=== PATIENT | male | born 1975 | race Hispanic/Latino ===

== ENCOUNTER 2021-01-28 21:01 | Emergency (ER) | payer OTHER ==
[2021-01-28] MEDS ORDERED: SODIUM CHLORIDE 0.9% 1000 ML 1,000 ML IV ONE (21:08)
[2021-01-28] MEDS ORDERED: ONDANSETRON 4 MG/2 ML INJ IV ONE (21:08)
[2021-01-28] MEDS ORDERED: fentaNYL 100 MCG/2 ML INJ IV ONE ×2 (21:10→21:23)
--- NOTE | 2021-01-28 21:12 | Emergency Department Report ---
ED Abdominal Pain HPI - General Stated Complaint: RT FLANK PAIN PUI?: No Time Seen by Provider: 01/28/21 21:04 - History of Present Illness Initial Comments: Patient is 45 years old male with no significant past medical history. Patient brought to the emergency room via EMS for evaluation of sudden onset of right flank pain that radiated to his suprapubic area. Patient described the pain as stabbing, on and off. Patient also reported nausea but no vomiting. Patient denied any fever, chills, chest pain or shortness of breath. Patient is very diaphoretic. Patient rated his pain 10 out of 10. MD Complaint: flank pain -: Sudden, minutes(s) Radiation: none Severity: severe Severity scale (0 -10): 10 Quality: stabbing Associated Symptoms: denies other symptoms - Related Data Allergies Allergy/AdvReac Type Severity Reaction Status Date / Time codeine AdvReac Hives Verified 01/28/21 21:25 ED Review of Systems ROS: Stated complaint: RT FLANK PAIN Other details as noted in HPI Comment: All other systems reviewed and negative Constitutional: denies: chills, fever Respiratory: denies: cough, shortness of breath, SOB with exertion Cardiovascular: denies: chest pain, palpitations Gastrointestinal: abdominal pain, nausea. denies: vomiting, diarrhea, constipation, hematemesis, hematochezia Musculoskeletal: back pain Neurological: denies: headache, weakness, numbness, paresthesias, confusion ED Physical Exam - General General appearance: alert, in distress - Head Head exam: Present: atraumatic, normocephalic, normal inspection - Eye Eye exam: Present: normal appearance - ENT ENT exam: Present: normal exam, normal orophraynx, mucous membranes moist - Neck Neck exam: Present: normal inspection, full ROM. Absent: tenderness, meningismus - Respiratory Respiratory exam: Present: normal lung sounds bilaterally - Cardiovascular Cardiovascular Exam: Present: regular rate, normal rhythm, normal heart sounds - GI/Abdominal GI/Abdominal exam: Present: soft, normal bowel sounds. Absent: distended, tenderness, guarding, rebound, rigid, organomegaly, mass, bruit, pulsatile mass, hernia - Extremities Exam Extremities exam: Present: normal inspection, full ROM, normal capillary refill. Absent: tenderness - Back Exam Back exam: Present: normal inspection, full ROM, CVA tenderness (R). Absent: CVA tenderness (L), muscle spasm, paraspinal tenderness, vertebral tenderness - Neurological Exam Neurological exam: Present: alert, oriented X3, CN II-XII intact, normal gait, reflexes normal. Absent: motor sensory deficit - Psychiatric Psychiatric exam: Present: normal mood - Skin Skin exam: Present: warm, intact, normal color ED Medical Decision Making - EKG Data -: EKG Interpreted by Ms EKG shows normal: sinus rhythm Rate: normal - EKG Data Interpretation: no acute changes - Radiology Data Radiology results: report reviewed - Medical Decision Making Patient is 45 years old male with no significant past medical history. Patient brought to the emergency room via EMS for evaluation of sudden onset of right flank pain that radiated to his suprapubic area. Patient described the pain as stabbing, on and off. Patient also reported nausea but no vomiting. Patient denied any fever, chills, chest pain or shortness of breath. Patient is very diaphoretic. Patient rated his pain 10 out of 10. Patient received fentanyl 50 MCG x2 and Zofran. Patient also received Toradol 30 mg IV. Patient stated that he is pain is down to [address] abdomen pelvis without contrast showed a 3 mm ureteral stone with mild right hydronephrosis. Patient given prescription for [place], Zofran and Flomax and given Dr. Khna, urologist to follow-up in the next 2 to 3 days and advised to return to the ER if he develop any new symptoms. Critical care attestation.: If time is entered above; I have spent that time in minutes in the direct care of this critically ill patient, excluding procedure time. ED Disposition Clinical Impression: Right ureteral stone, Hydronephrosis, right Disposition: 01 HOME / SELF CARE / HOMELESS Is pt being admited?: No Condition: Stable Instructions: Hydronephrosis, Renal Colic Referrals: JOHN KHAN MD [Staff Physician] - 3-5 Days
--- NOTE | 2021-01-28 22:28 | Cat Scan Report ---
CT ABDOMEN AND PELVIS WITHOUT CONTRAST INDICATION / CLINICAL INFORMATION: Pt complains of abdominal / RIGHT sided flank pain. TECHNIQUE: Axial CT images were obtained through the abdomen and pelvis without IV contrast. All CT scans at this location are performed using CT dose reduction for ALARA by means of automated exposure control. COMPARISON: None available. FINDINGS: LOWER CHEST: No significant abnormality. LIVER: No significant abnormality. GALLBLADDER: No significant abnormality. BILE DUCTS: No significant abnormality. PANCREAS: No significant abnormality. SPLEEN: No significant abnormality. ADRENALS: No significant abnormality. RIGHT KIDNEY / URETER: Mild right hydroureteronephrosis secondary to 3 mm stone which is now at the r ight ureteral orifice. Additional punctate stones are seen throughout the right kidney. LEFT KIDNEY / URETER: Nonobstructing 3 mm stone in the midportion. STOMACH / SMALL BOWEL: No significant abnormality. COLON: No significant abnormality. APPENDIX: No significant abnormality. PERITONEUM: No free fluid. No free air. No fluid collection. LYMPH NODES: No significant adenopathy. AORTA / ARTERIES: No significant abnormality. IVC / VEINS: No significant abnormality. URINARY BLADDER: No significant abnormality. REPRODUCTIVE ORGANS: No significant abnormality. ADDITIONAL FINDINGS: None. SKELETAL SYSTEM: No significant abnormality. IMPRESSION: 1. Mild right hydroureteronephrosis secondary to 3 mm obstructing stone at right ureteral orifice. 2. Additional bilateral renal stones as above. Signer Name: Gerry Medina MD Signed: 01/28/2021 10:23 PM Workstation Name: [id number]
[2021-01-28] MEDS: KETOROLAC 30 MG/1 ML INJ IV ONE ×2 (23:00)
[2021-01-28 23:15] LABS: Basophils # (Auto) 0.1 K/mm3 (0.0-0.1); Basophils % (Auto) 0.6 % (0.0-1.8); Eosinophils # (Auto) 0.1 K/mm3 (0.0-0.4); Hematocrit 43.6 % (35.5-45.6); Hemoglobin 14.6 gm/dl (11.8-15.2); Lymphocytes % (Auto) 13.8 % (13.4-35.0); Mean Corpuscular HGB Conc 34 % (32-34); Mean Corpuscular Volume 88 fl (84-94); Monocytes # (Auto) 0.8 K/mm3 (0.0-0.8); Monocytes % (Auto) 5.9 % (0.0-7.3); Platelet Count 320 K/mm3 (140-440); Red Blood Count 4.97 M/mm3 (3.65-5.03); Red Cell Distribution Width 13.6 % (13.2-15.2)
[2021-01-28 23:28] LABS: BUN/Creatinine Ratio 11; Blood Urea Nitrogen 12 mg/dL (9-20); Calcium 9.1 mg/dL (8.4-10.2); Hemolysis Index 5
[2021-01-29 00:27] LABS: Bilirubin,Urine NEG (Negative); Blood,Urine LG (Negative); Calcium Oxalate Crystals,Urine 2+; Color,Urine Straw (Yellow); Mucus,Urine FEW /HPF; Protein,Urine <15 mg/dL mg/dL (Negative); Urobilinogen,Urine < 2.0 mg/dL (<2.0)
[2021-01-29 00:28] LABS: RBC,Urine > 182.0 /HPF (0.0-6.0)
[2021-01-29 02:35] VITALS: BP 128/88
--- NOTE | 2021-01-29 11:41 | Electrocardiograph Report ---
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
== END 2021-01-29 01:55 | disposition home or self-care (01) ==
LOC: ED 21:01
DX: N13.2 Hydronephrosis with renal and ureteral calculous obstruction (principal); Z88.5 Allergy status to narcotic agent
CPT/HCPCS: 36415; 74176; 80048; 81001; 85025; 93005; 96361; 96374; 96375; 99284; J2405; J3010; J7030; J1885